=== PATIENT | female | born 1980 | race Caucasian/White ===

== ENCOUNTER 2016-08-08 14:47 | Emergency (ER) | payer MEDICARE, OTHER ==
[~2016-08-08] VITALS: Ht 172.7 cm; Wt 77.1 kg
[~2016-08-08 14:47] MED LIST: HYDR-971 PO; PENI500T PO; TRAM-29 PO
[2016-08-08 14:53] VITALS: BP 142/98
[2016-08-08] MEDS ORDERED: NAPROXEN 500 MG TABLET PO STA (15:23)
[2016-08-08] MEDS ORDERED: METH4TAB2 PO (15:28)
[2016-08-08] MEDS ORDERED: METH-37 PO (15:28)
--- NOTE | 2016-08-08 15:28 | PHYS DOC ---
Past Medical History Past Medical History: Anxiety, Depression, Other Additional Past Medical Histor: INSOMNIA Past Surgical History: Appendectomy Additional Past Surgical Histo: RIGHT FOOT Alcohol Use: Rarely Drug Use: None Adult General Chief Complaint Chief Complaint: MECHANICAL FALL HPI HPI Patient is a 36 year old female who presents with right anterior rib pain that has been going on intermittently for 1 month. Patient states a month ago she fell down a couple steps. She states she was seen in the ED evaluated and had no fractures. She states she has been taking Ultram and naproxen with no relief. Patient is in the ED stating a couple days ago she lifted a heavy rug for her mother while moving, patient states she doesn't know if she reinjured herself but the pain has increased. Patient states the pain is worse on movement. Patient denies falling. Patient is begging for a different pain medicine, on asking her what specific medicine she wants, she is begging for hydrocodone for a couple days. She begged for some time. I had to convince we have no indication for giving her hydrocodone. Review of Systems Review of Systems Constitutional: Denies fever or chills [] Eyes: Denies change in visual acuity, redness, or eye pain [] HENT: Denies nasal congestion or sore throat [] Respiratory: Right anterior chest wall pain Cardiovascular: No additional information not addressed in HPI [] GI: Denies abdominal pain, nausea, vomiting, bloody stools or diarrhea [] : Denies dysuria or hematuria [] Musculoskeletal: Denies back pain or joint pain [] Integument: Denies rash or skin lesions [] Neurologic: Denies headache, focal weakness or sensory changes [] Endocrine: Denies polyuria or polydipsia [] Current Medications Current Medications Current Medications Medications (Trade) Dose Ordered Sig/Destiny Start Time Stop Time Status Last Admin Dose Admin Acetaminophen/ Hydrocodone Bitart (Lortab 5/325) 2 tab 1X ONCE 08/08/16 16:00 08/08/16 16:01 Cyclobenzaprine HCl (Flexeril) 10 mg 1X ONCE 08/08/16 16:00 08/08/16 16:01 Naproxen (Naprosyn) 500 mg 1X STAT 08/08/16 15:23 08/08/16 15:27 DC Allergies Allergies Allergies Coded Allergies Type Severity Reaction Last Updated Verified No Known Drug Allergies 04/20/16 No Physical Exam Physical Exam Constitutional: Well developed, well nourished, no acute distress, non-toxic appearance. [] HENT: Normocephalic, atraumatic, bilateral external ears normal, oropharynx moist, no oral exudates, nose normal. [] Eyes: PERRLA, EOMI, conjunctiva normal, no discharge. [] Neck: Normal range of motion, no tenderness, supple, no stridor. [] Cardiovascular:Heart rate regular rhythm, no murmur [] Lungs & Thorax: Bilateral breath sounds clear to auscultation, diffuse tenderness to anterior right chest wall pain around ribs 3,4 and 5 midclavicular line. Abdomen: Bowel sounds normal, soft, no tenderness, no masses, no pulsatile masses. [] Skin: Warm, dry, no erythema, no rash. [] Back: No tenderness, no CVA tenderness. [] Extremities: No tenderness, no cyanosis, no clubbing, ROM intact, no edema. [] Neurologic: Alert and oriented X 3, normal motor function, normal sensory function, no focal deficits noted. [] Psychologic: Affect normal, judgement normal, mood normal. [] Current Patient Data Vital Signs Vital Signs Date Time Temp Pulse Resp B/P Pulse Ox O2 Delivery O2 Flow Rate FiO2 08/08/16 14:53 98.1 98 16 99 Room Air 98.1 EKG EKG [] Radiology/Procedures Radiology/Procedures [] Course & Med Decision Making Course & Med Decision Making Pertinent Labs and Imaging studies reviewed. (See chart for details) Patient is in the ED complaining of right anterior chest wall pain that began a month ago after she fell down and got worse a couple days ago after she lifted a heavy rug. She readily had negative chest x-rays when she fell down. She is currently instructional technology specialist, naproxen. She is begging for a different pain medicine , on asking her what specific medicine she wants, she is begging for hydrocodone for a couple days. She begged for some time. I had to convince we have no indication for giving her hydrocodone. She was discharged with Robaxin and Medrol Dosepak. Encouraged to apply heat to the affected area. Follow-up with her PCP if she needs any pain medicine. Latanya Disclaimer Dragon Disclaimer This electronic medical record was generated, in whole or in part, using a voice recognition dictation system. Departure Departure Impression: Primary Impression: Fall Additional Impression: Muscle strain of chest wall Disposition: 01 HOME, SELF-CARE Condition: STABLE Referrals: NO PCP (PCP) Follow-up with your primary care doctor in one week Patient Instructions: Muscle Strain, Musculoskeletal Pain Additional Instructions: You were seen for muscle strain of your chest wall after lifting a heavy rug and falling a couple weeks ago. You can continue taking your Ultram or Naproxen for pain. Continue to apply heat to the affected area. You can take the other prescribed medicines as ordered. Follow-up with your own primary care doctor for this pain in a week. Scripts Methylprednisolone (Medrol)4 Mg Tab.ds.pk1 Pkg PO UD #1 PKG Prov:LEVY ANTHONY APRN 08/08/16 Methocarbamol (Robaxin)500 Mg Tablet1 Tab PO BID #30 TAB Prov:LEVY ANTHONY APRN 08/08/16 Problem Qualifiers Primary Impression: Fall Encounter type: subsequent encounter Qualified Code: W19.XXXD - Unspecified fall, subsequent encounter Additional Impression: Muscle strain of chest wall Encounter type: initial encounter Qualified Code: S29.011A - Strain of muscle and tendon of front wall of thorax, initial encounter LEVY ANTHONY APRN Aug 08, 2016 15:28
[2016-08-08] MEDS ORDERED: CYCLOBENZAPRINE 10 MG TABLET. PO ONE (16:00)
[2016-08-08] MEDS ORDERED: HYDROCODONE/APAP 5/325MG TABLET. PO ONE (16:00)
== END 2016-08-08 15:33 | disposition home or self-care (01) ==
LOC: ER 14:47
DX: S29.011A Strain of muscle and tendon of front wall of thorax, initial encounter (principal); F41.9 Anxiety disorder, unspecified; F32.9 Major depressive disorder, single episode, unspecified; G47.00 Insomnia, unspecified; W10.8XXA Fall (on) (from) other stairs and steps, initial encounter; X50.0XXA Overexertion from strenuous movement or load, initial encounter; X50.9XXA Other and unspecified overexertion or strenuous movements or postures, initial encounter; Y93.89 Activity, other specified; Y99.8 Other external cause status; Y92.89 Other specified places as the place of occurrence of the external cause
CPT/HCPCS: 99284

== ENCOUNTER 2017-12-15 15:41 | Emergency (ER) | payer MEDICARE, OTHER ==
[2017-12-15] MEDS: HYDROcodone/APAP 5/325MG 1 TAB TABLET PO (16:14)
== END 2017-12-15 16:35 | disposition home or self-care (01) ==
LOC: ER 16:35
DX: G89.29 Other chronic pain (principal); M79.671 Pain in right foot; L60.0 Ingrowing nail
CPT/HCPCS: 99283

== ENCOUNTER 2019-12-05 15:41 | Emergency (ER) | payer MEDICARE ==
[2017-12-15 15:45] VITALS: BP 127/80
[~2019-12-05 15:41] MED LIST changes: +CEPH500T PO; +HYDR-3164 PO; -HYDR-971 PO; +METH-37 PO; +METH4TAB2 PO; -TRAM-29 PO; +TRAM-48 PO
--- NOTE | 2019-12-05 19:51 | PHYS DOC ---
Past Medical History Past Medical History: Depression Additional Past Medical Histor: INSOMNIA Past Surgical History: Other Additional Past Surgical Histo: R foot Smoking Status: Current Every Day Smoker Alcohol Use: None Drug Use: None General Adult EDM: Chief Complaint: KNEE INJURY HPI: HPI: Patient is a 39 year old female who presents with complaints of left anterior knee pain and swelling. She states that almost a year ago she had been diagnosed with a strain of her ACL in the same knee. She reports that 2 days ago she misstepped and twisted the same knee. She reports that the pain returned and her knee feels swollen. She currently rates the pain 8 out of 10 on the pain scale, patient states she took ibuprofen earlier for relief of the pain with little to no relief. She denies any radiation of the pain, the pain increases with weightbearing and movement. Review of Systems: Review of Systems: Constitutional: Denies fever or chills. [] Musculoskeletal: See HPI [] Integument: See HPI [] Psychiatric: Denies depression or anxiety. [] Heart Score: Risk Factors: Risk Factors: DM, Current or recent (<one month) smoker, HTN, HLP, family history of CAD, obesity. Risk Scores: Score 0 - 3: 2.5% MACE over next 6 weeks - Discharge Home Score 4 - 6: 20.3% MACE over next 6 weeks - Admit for Clinical Observation Score 7 - 10: 72.7% MACE over next 6 weeks - Early Invasive Strategies Allergies: Allergies: Allergies Coded Allergies Type Severity Reaction Last Updated Verified No Known Drug Allergies 12/15/17 No Physical Exam: PE: Constitutional: Well developed, well nourished, no acute distress, non-toxic appearance. [] HENT: Normocephalic, atraumatic, bilateral external ears normal, oropharynx moist, nose normal. [] Eyes: PERRLA, EOMI, conjunctiva normal, no discharge. [] Neck: Normal range of motion, no stridor. [] Cardiovascular:Heart rate regular rhythm, no murmur [] Lungs & Thorax: Respirations even and unlabored, no retractions, no respiratory distress [] Skin: Warm, dry, no erythema Extremities: Left knee; anterior tenderness to palpation, no crepitus, no obvious deformity, negative anterior/posterior drawer testing, increased pain with stress testing, no cyanosis, no clubbing, ROM intact, 1+ edema noted to the anterior knee Neurologic: Alert and oriented X 3, normal motor function, sensation normal Psychologic: Affect normal, judgement normal, mood normal. [] EKG: EKG: [] Radiology/Procedures: Radiology/Procedures: PROCEDURE: KNEE LEFT 3V Left knee 3 views. HISTORY: Left knee pain 3 views left knee show no evidence of a fracture or osseous abnormality or joint effusion. IMPRESSION: 1. Negative left knee. [] Course & Med Decision Making: Course & Med Decision Making Pertinent Labs and Imaging studies reviewed. (See chart for details) Patient is a 39-year-old female who presented to the emergency department with complaints of left anterior knee pain for the last 2 days after twisting her knee. X-ray revealed no acute findings. The patient was given 1 hydrocodone 5/325 mg tablet while in the emergency department. A prescription was written for naproxen 500 mg p.o. twice daily x10 days. She was given the information for Dr. Egan's office to follow-up for further orthopedic evaluation. Advised the patient that MRIs of extremities are not routinely ordered in the emergency department. I encouraged the patient to continue wearing of the knee support/brace that she came to the emergency department with and to ice and elevate the extremity as needed for comfort. Patient verbalized an understanding of home care, medications, follow-up, and return to ED instructions and was in agreement with the plan of care. [] Dragon Disclaimer: Dragon Disclaimer: This electronic medical record was generated, in whole or in part, using a voice recognition dictation system. Departure Departure Impression: Primary Impression: Left knee pain Qualified Codes: M25.562 - Pain in left knee Disposition: 01 HOME, SELF-CARE Condition: STABLE Referrals: NO PCP (PCP) Patient Instructions: Knee Pain, [id number] Additional Instructions: Fill prescription(s) and use as directed. Do not take ibuprofen while taking na proxen, recommend application of ice, elevation, and rest of affected extremity. Follow-up with Dr. Egan's office if symptoms persist, return to the ER if your symptoms worsen. Scripts Naproxen (NAPROXEN) 500 Mg Tablet 1 TAB PO BID PRN for PAIN for 10 Days, #20 TAB 0 Refills Prov: [employer] PRINCIPAL STATISTICAL SCIENTIST 12/05/19 Justicifation of Admission Dx: Justifications for Admission: Justification of Admission Dx: N/A [employer] PRINCIPAL STATISTICAL SCIENTIST Dec 05, 2019 19:51
--- NOTE | 2019-12-05 20:34 | RAD ---
Left knee 3 views. HISTORY: Left knee pain 3 views left knee show no evidence of a fracture or osseous abnormality or joint effusion. IMPRESSION: 1. Negative left knee. Electronically signed by: Jim Arteaga MD (12/05/2019 8:32 PM) [facility]
[2019-12-05] MEDS ORDERED: NAPR-514 PO (20:51)
[2019-12-05] MEDS ORDERED: HYDROcodone/APAP 5/325MG 1 TAB TABLET PO ONE (21:00)
== END 2019-12-05 21:04 | disposition home or self-care (01) ==
LOC: ER 15:41
DX: M25.562 Pain in left knee (principal); R60.0 Localized edema; F32.9 Major depressive disorder, single episode, unspecified; F17.200 Nicotine dependence, unspecified, uncomplicated; Z98.890 Other specified postprocedural states
CPT/HCPCS: 73562; 99283

== ENCOUNTER → 2020-06-20 | Outpatient (CLI) | payer MEDICARE, MEDICAID ==
[2017-12-15 15:45] VITALS: BP 127/80
[~2020-06-20] MED LIST changes: +NAPR-514 PO
--- NOTE | 2020-06-20 15:37 | KCIC ---
Two-view chest dated 06/20/2020. Comparison 07/03/2016 Clinical data indication: Chest pain. FINDINGS: PA and lateral views obtained. Heart and mediastinal contours are within normal limits. Lungs are xander ar. No consolidation or pleural effusion. No pneumothorax. IMPRESSION: No acute findings. Electronically signed by: Ayan Min MD (06/20/2020 3:35 PM) [id number]
== END ==
LOC: KCIC 14:56
PROVIDERS: ATTEND Family Medicine
DX: R07.1 Chest pain on breathing (principal)
CPT/HCPCS: 71046